=== PATIENT | male | born 1950 | race Caucasian/White ===

== ENCOUNTER 2023-08-25 14:15 | Inpatient (IN) | payer OTHER ==
[~2023-08-25] VITALS: Ht 167.6 cm; Wt 80.7 kg
[~2023-08-25 14:15] MED LIST: ACET-1182 PO; Gentamicin Per Pharmacy MC; [UNRECOGNIZED DRUG - CODE] IV; [UNRECOGNIZED DRUG - CODE] IV
[2023-08-25 14:25] VITALS: BP_SYST 110; PULSE 126; RESP 16; TEMP 101.2; O2SAT 93
[2023-08-25] MEDS ORDERED: ACETAMINOPHEN 650 MG SUPP RC ONE (14:45)
[2023-08-25] MEDS ORDERED: NACL 0.9% 1,000 ML IV ONE (14:45)
[2023-08-25 15:05] LABS: BASOPHILS % (AUTO) 0.2 % (0.0-2.0); EOSINOPHILS % (AUTO) 0.1 % (0.0-4.0); HEMATOCRIT 38.7 % (36-52); HEMOGLOBIN 13.2 g/dL (12.0-18.0); LYMPHOCYTES # (AUTO) 0.3 K/uL (2.0-11.5); MEAN CORPUSCULAR HEMOGLOBIN 29 pg (27-31); MEAN CORPUSCULAR HGB CONC 34 g/dL (33-37); MEAN CORPUSCULAR VOLUME 85.5 fL (80-94); MONOCYTES # (AUTO) 0.6 K/uL (0.8-1.0); MONOCYTES % (AUTO) 5.7 % (1.7-9.3); NEUTROPHILS # (AUTO) 9.5 K/uL (1.8-7.7); PLATELET COUNT (AUTO) 240 K/uL (140-450); RED BLOOD CELL COUNT(AUTO) 4.53 MIL/uL (4.20-6.10); RED CELL DISTRIBUTION WIDTH 17.3 % (11.6-13.7); WHITE BLOOD COUNT (AUTO) 10.4 K/uL (4.8-10.8)
[2023-08-25 15:28] LABS: BILIRUBIN,URINE 1+ (NEGATIVE); BLOOD, URINE 3+ (NEGATIVE); LEUKOCYTE ESTERASE ,URINE 1+ (NEGATIVE); NITRITE, URINE NEGATIVE (NEGATIVE); PH,URINE 6.5 (5.0-9.0); PROTEIN,URINE 2+ (NEGATIVE); UGLUCOSE NEGATIVE (NEGATIVE)
[2023-08-25 15:29] VITALS: O2SAT 96
[2023-08-25 15:35] LABS: ANION GAP 10.1 (8-16); CALCIUM 9.8 mg/dL (8.5-10.1); CARBON DIOXIDE 29.1 mmol/L (21-32); CHLORIDE 101 mmol/L (98-107); GLUCOSE 128 mg/dL (74-106); POTASSIUM 4.2 mmol/L (3.5-5.1); SODIUM SERUM 136 mmol/L (136-145); UREA NITROGEN, BLOOD 28 mg/dL (7-18)
[2023-08-25 15:40] LABS: INR 1.03 (0.8-1.2); PARTIAL THROMBOPLASTIN TIME 24.1 secs (22-35.6); PROTHROMBIN TIME 10.8 secs (10.8-13.4)
[2023-08-25 15:47] LABS: ALANINE AMINOTRANSFERASE 67 U/L (12-78); ALBUMIN 3.6 g/dL (3.4-5.0); ALKALINE PHOSPHATASE 107 U/L (50-136); ASPARTATE AMINOTRANSFERASE 46 U/L (15-37); BILIRUBIN,DIRECT 0.3 mg/dL (0.0-0.3); CREATINE KINASE, TOTAL 72 U/L (39-308); TOTAL BILIRUBIN 1.4 mg/dL (0.0-1.0); TOTAL PROTEIN, SERUM 8.5 g/dL (6.4-8.2)
[2023-08-25 15:52] LABS: LACTIC ACID 1.1 mmol/L (0.4-2.0)
[2023-08-25 16:00] LABS: FLU B ANTIGEN NEGATIVE (NEGATIVE); RSV NEGATIVE (NEGATIVE)
[2023-08-25 16:02] LABS: FLU A ANTIGEN POSITIVE (NEGATIVE)
[2023-08-25 16:16] LABS: APPEARANCE,URINE CLOUDY (CLEAR); COLOR,URINE AMBER (YELLOW)
[2023-08-25 16:17] LABS: BACTERIA,URINE 4+ /HPF (None Seen); RBC,URINE >100 /HPF (0-5); SQUAMOUS EPITHELIAL CELL,UR None Seen /LPF (0-3 (FEW)); WBC,URINE TOO MANY TO COUNT /HPF (0-5)
[2023-08-25] MEDS ORDERED: cefTRIAXone 1,000 MG VIAL ONE (17:13)
[2023-08-25] MEDS ORDERED: ONDANSETRON 4 MG/2 ML VIAL IVP PRN (18:55)
[2023-08-25] MEDS ORDERED: HYDROcodone/APAP 5/325 MG 1 TAB TAB PO PRN (18:55)
[2023-08-25] MEDS ORDERED: ACETAMINOPHEN 325 MG TAB PO PRN (18:55)
[2023-08-25] MEDS ORDERED: MORPHINE SULFATE 4 MG/ML SYR IVP PRN (18:55)
[2023-08-25] MEDS ORDERED: POTASSIUM CHLORIDE 10 MEQ TABER PO PRN (18:55)
[2023-08-25] MEDS ORDERED: LORazepam 1 MG TAB PO PRN (18:55)
[2023-08-25] MEDS ORDERED: MAG SULF 2000 MG/WATER PREMIX 50 ML IV PRN (18:55)
[2023-08-25 19:49] VITALS: O2SAT 97
[2023-08-25 20:45] VITALS: PULSE 105; RESP 18; O2SAT 97
[2023-08-25] MEDS ORDERED: OXYC5TAB4 PO (21:33)
[2023-08-25] MEDS ORDERED: MULT-2171 PO (21:33)
[2023-08-25] MEDS ORDERED: BISA-218 RC (21:33)
[2023-08-25] MEDS ORDERED: CHOL20004 PO (21:33)
[2023-08-25] MEDS ORDERED: DOCU-299 PO (21:33)
[2023-08-25] MEDS ORDERED: ACET325C8 PO (21:33)
[2023-08-25] MEDS ORDERED: ATOR10TA PO (21:33)
[2023-08-25] MEDS ORDERED: FLEPED RC (21:33)
[2023-08-25] MEDS ORDERED: MEMA5TAB PO (21:33)
[2023-08-25] MEDS ORDERED: MAGN400S60 PO (21:33)
[2023-08-25] MEDS: NACL 0.9% 1,000 ML IV SCH (23:16)
[2023-08-25] MEDS ORDERED: ALBUTEROL SULFATE/IPRATROPIU 3 ML SOL IH PRN (23:40)
[2023-08-25] MEDS ORDERED: ALBUTEROL SULFATE/IPRATROPIU 3 ML SOL IH ONE (23:50)
[2023-08-25] MEDS ORDERED: AZITHROMYCIN 500 MG INJ VIAL IV ONE (23:59)
[2023-08-26] VITALS (12 sets, daily range): BP systolic 110–138; BP diastolic 63–76; PULSE 89–132; RESP 16–24; TEMP 97.4–98.8; O2SAT 96–100
[2023-08-26] MEDS: AZITHROMYCIN 500 MG in DEXTROSE 5% 250 ML IV SCH (00:17)
[2023-08-26 06:14] LABS: BASOPHILS % (AUTO) 0.2 % (0.0-2.0); EOSINOPHILS % (AUTO) 0.5 % (0.0-4.0); HEMATOCRIT 36.5 % (36-52); HEMOGLOBIN 12.3 g/dL (12.0-18.0); LYMPHOCYTES # (AUTO) 0.8 K/uL (2.0-11.5); LYMPHOCYTES % (AUTO) 7.6 % (20.5-51.1); MEAN CORPUSCULAR HEMOGLOBIN 29 pg (27-31); MEAN CORPUSCULAR HGB CONC 34 g/dL (33-37); MEAN CORPUSCULAR VOLUME 86.3 fL (80-94); MONOCYTES # (AUTO) 0.7 K/uL (0.8-1.0); MONOCYTES % (AUTO) 6.7 % (1.7-9.3); NEUTROPHILS # (AUTO) 8.5 K/uL (1.8-7.7); PLATELET COUNT (AUTO) 200 K/uL (140-450); RED BLOOD CELL COUNT(AUTO) 4.23 MIL/uL (4.20-6.10); WHITE BLOOD COUNT (AUTO) 10.1 K/uL (4.8-10.8)
[2023-08-26 06:41] LABS: ANION GAP 13.9 (8-16); CALCIUM 8.6 mg/dL (8.5-10.1); CARBON DIOXIDE 25.1 mmol/L (21-32); CHLORIDE 102 mmol/L (98-107); CREATININE 0.8 mg/dL (0.6-1.3); GLUCOSE 104 mg/dL (74-106); SODIUM SERUM 137 mmol/L (136-145); UREA NITROGEN, BLOOD 31 mg/dL (7-18)
[2023-08-26] MEDS: NACL 0.9% 1,000 ML IV SCH ×2 (06:54→22:36)
[2023-08-26] MEDS: ALBUTEROL SULFATE/IPRATROPIU 3 ML SOL IH SCH ×3 (07:17→19:45)
[2023-08-26] MEDS: LACTULOSE 20 GM/30 ML UDC PO SCH ×2 (12:44→21:00)
[2023-08-27] VITALS (10 sets, daily range): BP systolic 111–141; BP diastolic 60–81; PULSE 85–103; RESP 16–22; TEMP 97.7–98.5; O2SAT 94–98
[2023-08-27] MEDS: ALBUTEROL SULFATE/IPRATROPIU 3 ML SOL IH SCH ×4 (01:25→20:18)
[2023-08-27] MEDS: AZITHROMYCIN 500 MG in DEXTROSE 5% 250 ML IV SCH (02:21)
[2023-08-27 05:45] LABS: BASOPHILS % (AUTO) 0.3 % (0.0-2.0); EOSINOPHILS # (AUTO) 0.1 K/uL (0-0.4); EOSINOPHILS % (AUTO) 0.9 % (0.0-4.0); HEMATOCRIT 37.3 % (36-52); HEMOGLOBIN 12.8 g/dL (12.0-18.0); LYMPHOCYTES # (AUTO) 0.6 K/uL (2.0-11.5); LYMPHOCYTES % (AUTO) 9.6 % (20.5-51.1); MEAN CORPUSCULAR HEMOGLOBIN 29 pg (27-31); MEAN CORPUSCULAR HGB CONC 34 g/dL (33-37); MEAN CORPUSCULAR VOLUME 85.7 fL (80-94); MONOCYTES # (AUTO) 0.6 K/uL (0.8-1.0); MONOCYTES % (AUTO) 9.7 % (1.7-9.3); NEUTROPHILS # (AUTO) 4.7 K/uL (1.8-7.7); NEUTROPHILS % (AUTO) 79.5 % (42.2-75.2); PLATELET COUNT (AUTO) 197 K/uL (140-450); RED BLOOD CELL COUNT(AUTO) 4.35 MIL/uL (4.20-6.10); RED CELL DISTRIBUTION WIDTH 17.1 % (11.6-13.7); WHITE BLOOD COUNT (AUTO) 5.9 K/uL (4.8-10.8)
[2023-08-27 06:05] LABS: ANION GAP 11.9 (8-16); CALCIUM 8.9 mg/dL (8.5-10.1); CARBON DIOXIDE 30.9 mmol/L (21-32); CHLORIDE 102 mmol/L (98-107); CREATININE 0.9 mg/dL (0.6-1.3); GLUCOSE 121 mg/dL (74-106); POTASSIUM 3.8 mmol/L (3.5-5.1); SODIUM SERUM 141 mmol/L (136-145); UREA NITROGEN, BLOOD 24 mg/dL (7-18)
[2023-08-27] MEDS: LACTULOSE 20 GM/30 ML UDC PO SCH ×2 (09:14→21:00)
[2023-08-27] MEDS: NACL 0.9% 1,000 ML IV SCH ×2 (09:19→20:55)
[2023-08-28] VITALS (9 sets, daily range): BP systolic 112–141; BP diastolic 68–97; PULSE 85–100; RESP 18–22; TEMP 97–98.1; O2SAT 93–98
[2023-08-28] MEDS: AZITHROMYCIN 500 MG in DEXTROSE 5% 250 ML IV SCH (00:57)
[2023-08-28] MEDS: ALBUTEROL SULFATE/IPRATROPIU 3 ML SOL IH SCH ×3 (01:45→12:48)
[2023-08-28 05:43] LABS: BASOPHILS % (AUTO) 0.3 % (0.0-2.0); EOSINOPHILS # (AUTO) 0.1 K/uL (0-0.4); HEMATOCRIT 36.2 % (36-52); HEMOGLOBIN 12.2 g/dL (12.0-18.0); LYMPHOCYTES # (AUTO) 0.5 K/uL (2.0-11.5); LYMPHOCYTES % (AUTO) 8.8 % (20.5-51.1); MEAN CORPUSCULAR HEMOGLOBIN 29 pg (27-31); MEAN CORPUSCULAR HGB CONC 34 g/dL (33-37); MEAN CORPUSCULAR VOLUME 85.3 fL (80-94); MONOCYTES # (AUTO) 0.5 K/uL (0.8-1.0); MONOCYTES % (AUTO) 8.8 % (1.7-9.3); NEUTROPHILS % (AUTO) 81.1 % (42.2-75.2); PLATELET COUNT (AUTO) 222 K/uL (140-450); RED BLOOD CELL COUNT(AUTO) 4.24 MIL/uL (4.20-6.10); WHITE BLOOD COUNT (AUTO) 6.1 K/uL (4.8-10.8)
[2023-08-28 05:58] LABS: ANION GAP 12.5 (8-16); CALCIUM 8.8 mg/dL (8.5-10.1); CARBON DIOXIDE 29.9 mmol/L (21-32); CHLORIDE 101 mmol/L (98-107); CREATININE 0.9 mg/dL (0.6-1.3); GLUCOSE 111 mg/dL (74-106); POTASSIUM 3.4 mmol/L (3.5-5.1); SODIUM SERUM 140 mmol/L (136-145); UREA NITROGEN, BLOOD 25 mg/dL (7-18)
[2023-08-28] MEDS: NACL 0.9% 1,000 ML IV SCH (09:25)
[2023-08-28] MEDS: LACTULOSE 20 GM/30 ML UDC PO SCH ×2 (09:30→21:00)
[2023-08-28] MEDS ORDERED: ALBU3SOL83 IH (11:36)
[2023-08-28] MEDS ORDERED: ROC1PM IV (11:40)
[2023-08-28] MEDS ORDERED: ERTA1VIA2 IV (14:04)
[2023-08-28] MEDS ORDERED: POTASSIUM CHLORIDE 20% 40 MEQ/15 ML UDC GT PRN (18:20)
[2023-08-29] VITALS (8 sets, daily range): BP systolic 114–143; BP diastolic 57–77; PULSE 92–104; RESP 18–24; TEMP 97.1–99.3; O2SAT 90–96
[2023-08-29] MEDS: AZITHROMYCIN 500 MG in DEXTROSE 5% 250 ML IV SCH (03:58)
[2023-08-29] MEDS: NACL 0.9% 1,000 ML IV SCH ×3 (04:01→22:18)
[2023-08-29 05:35] LABS: BASOPHILS % (AUTO) 0.1 % (0.0-2.0); EOSINOPHILS # (AUTO) 0.1 K/uL (0-0.4); EOSINOPHILS % (AUTO) 2.9 % (0.0-4.0); HEMATOCRIT 34.5 % (36-52); HEMOGLOBIN 11.7 g/dL (12.0-18.0); LYMPHOCYTES # (AUTO) 0.9 K/uL (2.0-11.5); LYMPHOCYTES % (AUTO) 17.8 % (20.5-51.1); MEAN CORPUSCULAR HEMOGLOBIN 29 pg (27-31); MEAN CORPUSCULAR HGB CONC 34 g/dL (33-37); MEAN CORPUSCULAR VOLUME 84.9 fL (80-94); MONOCYTES # (AUTO) 0.5 K/uL (0.8-1.0); MONOCYTES % (AUTO) 9.3 % (1.7-9.3); NEUTROPHILS # (AUTO) 3.5 K/uL (1.8-7.7); NEUTROPHILS % (AUTO) 69.9 % (42.2-75.2); PLATELET COUNT (AUTO) 219 K/uL (140-450); RED BLOOD CELL COUNT(AUTO) 4.07 MIL/uL (4.20-6.10); RED CELL DISTRIBUTION WIDTH 16.9 % (11.6-13.7)
[2023-08-29 05:54] LABS: ANION GAP 11.3 (8-16); CALCIUM 8.7 mg/dL (8.5-10.1); CARBON DIOXIDE 29.8 mmol/L (21-32); CHLORIDE 102 mmol/L (98-107); CREATININE 0.8 mg/dL (0.6-1.3); GLUCOSE 141 mg/dL (74-106); POTASSIUM 3.1 mmol/L (3.5-5.1); SODIUM SERUM 140 mmol/L (136-145); UREA NITROGEN, BLOOD 27 mg/dL (7-18)
[2023-08-29] MEDS: ALBUTEROL SULFATE/IPRATROPIU 3 ML SOL IH SCH ×3 (07:48→20:24)
[2023-08-29] MEDS: LACTULOSE 20 GM/30 ML UDC PO SCH ×2 (09:26→20:32)
[2023-08-29] MEDS ORDERED: ERTA1VIA2 IJ (11:10)
[2023-08-29] MEDS: ERTAPENEM SODIUM 1,000 MG in NACL 0.9% 50 ML IV SCH (12:23)
[2023-08-30] VITALS (7 sets, daily range): BP systolic 137–147; BP diastolic 75–92; PULSE 94–106; RESP 18–24; TEMP 98–98.3; O2SAT 95–98
[2023-08-30] MEDS: ALBUTEROL SULFATE/IPRATROPIU 3 ML SOL IH SCH ×4 (01:02→19:34)
[2023-08-30 04:59] LABS: BASOPHILS % (AUTO) 0.3 % (0.0-2.0); EOSINOPHILS # (AUTO) 0.1 K/uL (0-0.4); EOSINOPHILS % (AUTO) 1.1 % (0.0-4.0); HEMATOCRIT 36.5 % (36-52); HEMOGLOBIN 12.3 g/dL (12.0-18.0); LYMPHOCYTES # (AUTO) 0.9 K/uL (2.0-11.5); LYMPHOCYTES % (AUTO) 12.1 % (20.5-51.1); MEAN CORPUSCULAR HEMOGLOBIN 29 pg (27-31); MEAN CORPUSCULAR HGB CONC 34 g/dL (33-37); MEAN CORPUSCULAR VOLUME 85.3 fL (80-94); MONOCYTES # (AUTO) 0.7 K/uL (0.8-1.0); MONOCYTES % (AUTO) 9.2 % (1.7-9.3); NEUTROPHILS # (AUTO) 5.5 K/uL (1.8-7.7); NEUTROPHILS % (AUTO) 77.3 % (42.2-75.2); PLATELET COUNT (AUTO) 199 K/uL (140-450); RED BLOOD CELL COUNT(AUTO) 4.29 MIL/uL (4.20-6.10); RED CELL DISTRIBUTION WIDTH 16.9 % (11.6-13.7); WHITE BLOOD COUNT (AUTO) 7.1 K/uL (4.8-10.8)
[2023-08-30 05:13] LABS: ANION GAP 12.3 (8-16); CALCIUM 8.6 mg/dL (8.5-10.1); CARBON DIOXIDE 28.5 mmol/L (21-32); CHLORIDE 103 mmol/L (98-107); CREATININE 0.7 mg/dL (0.6-1.3); GLUCOSE 87 mg/dL (74-106); POTASSIUM 3.8 mmol/L (3.5-5.1); SODIUM SERUM 140 mmol/L (136-145); UREA NITROGEN, BLOOD 23 mg/dL (7-18)
[2023-08-30] MEDS: LACTULOSE 20 GM/30 ML UDC PO SCH ×2 (09:22→20:16)
[2023-08-30] MEDS: ERTAPENEM SODIUM 1,000 MG in NACL 0.9% 50 ML IV SCH (12:19)
[2023-08-30] MEDS: NACL 0.9% 1,000 ML IV SCH ×2 (12:22→23:34)
[2023-08-31 01:21] VITALS: PULSE 110; RESP 20; O2SAT 98
[2023-08-31] MEDS: ALBUTEROL SULFATE/IPRATROPIU 3 ML SOL IH SCH ×3 (01:21→13:23)
[2023-08-31 04:00] VITALS: BP 135/68; PULSE 92; RESP 19; TEMP 97.8; O2SAT 98
[2023-08-31 07:27] VITALS: PULSE 90; RESP 20; O2SAT 97
[2023-08-31 08:00] VITALS: BP 135/72; PULSE 96; RESP 20; TEMP 97.8; TEMP 98; O2SAT 94
[2023-08-31] MEDS: LACTULOSE 20 GM/30 ML UDC PO SCH (10:29)
[2023-08-31] MEDS: NACL 0.9% 1,000 ML IV SCH (12:25)
[2023-08-31 13:23] VITALS: PULSE 91; RESP 20; O2SAT 93
[2023-08-31] MEDS: ERTAPENEM SODIUM 1,000 MG in NACL 0.9% 50 ML IV SCH (13:26)
== END 2023-08-31 13:55 | DRG 720 ==
LOC: MED 14:15 → MMU 18:51 → MTU 20:19
PROVIDERS: ADMIT Student in an Organized Health Care Education/Training Program; ATTEND Student in an Organized Health Care Education/Training Program
PROC: 5A1935Z Respiratory Ventilation, Less than 24 Consecutive Hours (ICD-10-PCS; principal; 2023-08-26)
DX: A41.9 Sepsis, unspecified organism (principal); J96.01 Acute respiratory failure with hypoxia; G93.41 Metabolic encephalopathy; J10.00 Influenza due to other identified influenza virus with unspecified type of pneumonia; K76.82 Hepatic encephalopathy; E86.1 Hypovolemia; E78.5 Hyperlipidemia, unspecified; I10 Essential (primary) hypertension; D72.829 Elevated white blood cell count, unspecified; K59.00 Constipation, unspecified; N39.0 Urinary tract infection, site not specified; B96.1 Klebsiella pneumoniae [K. pneumoniae] as the cause of diseases classified elsewhere; Z20.822 Contact with and (suspected) exposure to COVID-19; Z86.73 Personal history of transient ischemic attack (TIA), and cerebral infarction without residual deficits
CPT/HCPCS: 36415; 70450; 71045; 80048; 80076; 81001; 82550; 83605; 83880; 84484; 85025; 85610; 85730; 87040; 87081; 87086; 87420; 93005; 94640; 96374; 99291; J0456; J0696; J1335; J1644; J2405; J7060

== ENCOUNTER 2023-08-31 18:12 | Inpatient (IN) | payer OTHER ==
[~2023-08-31] VITALS: Ht 177.8 cm; Wt 93.0 kg
[~2023-08-31 18:12] MED LIST changes: +ACET325C8 PO; +ALBU3SOL83 IH; +ATOR10TA PO; +BISA-218 RC; +CHOL20004 PO; +DOCU-299 PO; +ERTA1VIA2 IJ; +ERTA1VIA2 IV; +FLEPED RC; -Gentamicin Per Pharmacy MC; +MAGN400S60 PO; +MEMA5TAB PO; +MULT-2171 PO; -[UNRECOGNIZED DRUG - CODE] IV; -[UNRECOGNIZED DRUG - CODE] IV
[2023-08-31 18:24] VITALS: BP 115/71; PULSE 127; RESP 22; TEMP 98.9; O2SAT 93
[2023-08-31] MEDS ORDERED: CEFEPIME 1,000 MG in DEXTROSE 5% 50 ML IV ONE (19:05)
[2023-08-31] MEDS ORDERED: NACL 0.9% 2,000 ML IV ONE (19:05)
[2023-08-31] MEDS ORDERED: CEFEPIME 1,000 MG VIAL ONE ×2 (19:28→22:48)
[2023-08-31 20:07] LABS: ANION GAP 16.7 (8-16); CALCIUM 8.6 mg/dL (8.5-10.1); CHLORIDE 105 mmol/L (98-107); CREATININE 0.7 mg/dL (0.6-1.3); GLUCOSE 115 mg/dL (74-106); POTASSIUM 3.7 mmol/L (3.5-5.1); SODIUM SERUM 141 mmol/L (136-145); UREA NITROGEN, BLOOD 36 mg/dL (7-18)
[2023-08-31 20:12] LABS: BASOPHILS % (AUTO) 0.2 % (0.0-2.0); EOSINOPHILS % (AUTO) 0.1 % (0.0-4.0); HEMATOCRIT 35.3 % (36-52); HEMOGLOBIN 11.7 g/dL (12.0-18.0); LYMPHOCYTES # (AUTO) 0.5 K/uL (2.0-11.5); LYMPHOCYTES % (AUTO) 4.1 % (20.5-51.1); MEAN CORPUSCULAR HEMOGLOBIN 28 pg (27-31); MEAN CORPUSCULAR HGB CONC 33 g/dL (33-37); MEAN CORPUSCULAR VOLUME 85.7 fL (80-94); MONOCYTES # (AUTO) 0.5 K/uL (0.8-1.0); MONOCYTES % (AUTO) 4.6 % (1.7-9.3); NEUTROPHILS # (AUTO) 10.4 K/uL (1.8-7.7); PLATELET COUNT (AUTO) 238 K/uL (140-450); RED BLOOD CELL COUNT(AUTO) 4.12 MIL/uL (4.20-6.10); RED CELL DISTRIBUTION WIDTH 16.9 % (11.6-13.7); WHITE BLOOD COUNT (AUTO) 11.4 K/uL (4.8-10.8)
[2023-08-31 20:17] LABS: LACTIC ACID 1.1 mmol/L (0.4-2.0)
[2023-08-31] MEDS ORDERED: PIPERACILLIN/TAZOBACTAM 3.375 GM in DEXTROSE 5% 50 ML IV ONE (23:30)
[2023-09-01] MEDS ORDERED: PIPERACILLIN/TAZOBACTAM 3.375 GM VIAL IV ONE ×3 (00:16→21:37)
[2023-09-01] MEDS ORDERED: diphenhydrAMINE 50 MG/ML VIAL IVP ONE (01:10)
[2023-09-01] MEDS ORDERED: ACETAMINOPHEN 325 MG TAB PO PRN (05:45)
[2023-09-01] MEDS ORDERED: ONDANSETRON 4 MG/2 ML VIAL IVP PRN (05:45)
[2023-09-01] MEDS ORDERED: MORPHINE SULFATE 2 MG/ML SYR IVP PRN (05:45)
[2023-09-01] MEDS: NACL 0.9% 1,000 ML IV SCH ×3 (07:13→21:33)
[2023-09-01] MEDS: PIPERACILLIN/TAZOBACTAM 3.375 GM in DEXTROSE 5% 50 ML IV SCH ×2 (13:24→22:01)
[2023-09-01] MEDS ORDERED: LORazepam 2 MG/ML VIAL ONE (14:23)
[2023-09-01 14:52] LABS: BASOPHILS % (AUTO) 0.1 % (0.0-2.0); EOSINOPHILS % (AUTO) 0.1 % (0.0-4.0); HEMATOCRIT 33.8 % (36-52); HEMOGLOBIN 11.3 g/dL (12.0-18.0); LYMPHOCYTES # (AUTO) 0.6 K/uL (2.0-11.5); LYMPHOCYTES % (AUTO) 4.3 % (20.5-51.1); MEAN CORPUSCULAR HEMOGLOBIN 29 pg (27-31); MEAN CORPUSCULAR HGB CONC 33 g/dL (33-37); MONOCYTES # (AUTO) 0.8 K/uL (0.8-1.0); MONOCYTES % (AUTO) 6.2 % (1.7-9.3); NEUTROPHILS # (AUTO) 11.5 K/uL (1.8-7.7); NEUTROPHILS % (AUTO) 89.3 % (42.2-75.2); PLATELET COUNT (AUTO) 256 K/uL (140-450); RED BLOOD CELL COUNT(AUTO) 3.93 MIL/uL (4.20-6.10); RED CELL DISTRIBUTION WIDTH 17.1 % (11.6-13.7); WHITE BLOOD COUNT (AUTO) 12.9 K/uL (4.8-10.8)
[2023-09-01] MEDS ORDERED: LORazepam 2 MG/ML VIAL IVP ONE (15:00)
[2023-09-01] MEDS ORDERED: LORazepam 2 MG/ML VIAL IVP SCH (15:00)
[2023-09-01] MEDS ORDERED: MAGNESIUM HYDROXIDE 2400 MG/30 ML UDC PO PRN (15:40)
[2023-09-01] MEDS ORDERED: bisacodyL 10 MG SUPP RC PRN (15:40)
[2023-09-01] MEDS: PANTOPRAZOLE 80 MG in NACL 0.9% 100 ML IVP SCH (15:42)
[2023-09-01 17:00] LABS: BLOOD GAS BASE EXCESS -2.9 mmol/L (-2.0-2.0); BLOOD GAS HCO3 21.4 mmol/L (22-26); BLOOD GAS PCO2 35.8 mmHg (35-45); BLOOD GAS PH 7.395 (7.35-7.45); BLOOD GAS PO2 71.5 mmHg (75-100)
[2023-09-01 17:01] LABS: BLOOD GAS O2 SAT% 93.9 % (92.0-98.5)
[2023-09-01 19:27] VITALS: PULSE 119; RESP 32; O2SAT 100
[2023-09-01] MEDS: IPRATROPIUM 0.02% 0.5 MG/2.5 ML NEBU INH SCH (19:27)
[2023-09-01] MEDS: LEVALBUTEROL 1.25 MG/0.5 ML NEBU INH SCH (19:27)
[2023-09-01 20:24] VITALS: PULSE 115; RESP 20; O2SAT 98
[2023-09-01] MEDS ORDERED: DOCUSATE SODIUM 100 MG GELCAP PO SCH (21:00)
[2023-09-01 22:00] VITALS: BP 96/60; PULSE 116; RESP 18; TEMP 98.1; O2SAT 100
[2023-09-01 23:00] VITALS: BP 121/66; PULSE 115; RESP 20; O2SAT 98
[2023-09-02] VITALS (27 sets, daily range): BP systolic 87–129; BP diastolic 51–75; PULSE 86–135; RESP 14–40; TEMP 97.1–98; O2SAT 92–100
[2023-09-02] MEDS: IPRATROPIUM 0.02% 0.5 MG/2.5 ML NEBU INH SCH ×4 (01:00→20:15)
[2023-09-02] MEDS: LEVALBUTEROL 1.25 MG/0.5 ML NEBU INH SCH ×4 (01:00→20:15)
[2023-09-02] MEDS ORDERED: PANTOPRAZOLE 40 MG INJ VIAL ONE (01:31)
[2023-09-02] MEDS: PANTOPRAZOLE 80 MG in NACL 0.9% 100 ML IVP SCH ×3 (01:42→20:59)
[2023-09-02] MEDS ORDERED: PIPERACILLIN/TAZOBACTAM 3.375 GM VIAL IV ONE (02:39)
[2023-09-02] MEDS: PIPERACILLIN/TAZOBACTAM 3.375 GM in DEXTROSE 5% 50 ML IV SCH ×3 (04:10→20:49)
[2023-09-02] MEDS: CHOLECALCIFEROL 1,000 IU TAB PO SCH (08:48)
[2023-09-02] MEDS: DOCUSATE 100 MG/10 ML UDC GT SCH ×2 (08:48→21:27)
[2023-09-02] MEDS: MEMANTINE 10 MG TAB PO SCH (08:49)
[2023-09-02] MEDS: MULTIVITAMIN 1 TAB PO SCH (08:49)
[2023-09-02] MEDS ORDERED: NON-FORMULARY ITEM (Cholecalciferol (Vitamin D3) (Vitamin D3) 1 TAB) PO SCH (09:00)
[2023-09-02] MEDS ORDERED: NON-FORMULARY ITEM (Multivitamin (Multiple Vitamins) 1 TAB) PO SCH (09:00)
[2023-09-02 09:38] LABS: BASOPHILS % (AUTO) 0.2 % (0.0-2.0); EOSINOPHILS # (AUTO) 0.1 K/uL (0-0.4); EOSINOPHILS % (AUTO) 0.9 % (0.0-4.0); HEMATOCRIT 28.1 % (36-52); HEMOGLOBIN 9.4 g/dL (12.0-18.0); LYMPHOCYTES # (AUTO) 1.1 K/uL (2.0-11.5); LYMPHOCYTES % (AUTO) 7.1 % (20.5-51.1); MEAN CORPUSCULAR HEMOGLOBIN 29 pg (27-31); MEAN CORPUSCULAR HGB CONC 33 g/dL (33-37); MEAN CORPUSCULAR VOLUME 86.5 fL (80-94); MONOCYTES # (AUTO) 0.9 K/uL (0.8-1.0); MONOCYTES % (AUTO) 5.8 % (1.7-9.3); NEUTROPHILS # (AUTO) 12.7 K/uL (1.8-7.7); PLATELET COUNT (AUTO) 222 K/uL (140-450); RED BLOOD CELL COUNT(AUTO) 3.25 MIL/uL (4.20-6.10); RED CELL DISTRIBUTION WIDTH 17.1 % (11.6-13.7); WHITE BLOOD COUNT (AUTO) 14.8 K/uL (4.8-10.8)
[2023-09-02] MEDS ORDERED: NACL 0.9% 1,000 ML IV ONE (09:45)
[2023-09-02] MEDS ORDERED: NOREPINEPHRINE 4 MG in DEXTROSE 5% 250 ML IV PRN (09:45)
[2023-09-02 09:59] LABS: ALANINE AMINOTRANSFERASE 75 U/L (12-78); ALBUMIN 2.1 g/dL (3.4-5.0); ALKALINE PHOSPHATASE 66 U/L (50-136); ANION GAP 7.9 (8-16); ASPARTATE AMINOTRANSFERASE 39 U/L (15-37); CALCIUM 8.3 mg/dL (8.5-10.1); CARBON DIOXIDE 28.3 mmol/L (21-32); CHLORIDE 112 mmol/L (98-107); CREATININE 0.8 mg/dL (0.6-1.3); GLUCOSE 99 mg/dL (74-106); MAGNESIUM 2.3 mg/dL (1.8-2.4); POTASSIUM 3.2 mmol/L (3.5-5.1); SODIUM SERUM 145 mmol/L (136-145); TOTAL BILIRUBIN 1.2 mg/dL (0.0-1.0); TOTAL PROTEIN, SERUM 6.3 g/dL (6.4-8.2); UREA NITROGEN, BLOOD 34 mg/dL (7-18)
[2023-09-02] MEDS: NACL 0.9% 1,000 ML IV SCH ×2 (10:23→20:50)
[2023-09-02] MEDS: ACETAMINOPHEN 100 ML IV SCH ×3 (13:25→23:59)
[2023-09-02] MEDS ORDERED: DILTIAZEM 25 MG/5 ML VIAL IVP SCH (13:30)
[2023-09-02] MEDS ORDERED: AMIODARONE 450 MG in DEXTROSE 5% 250 ML IV SCH (13:45)
[2023-09-02] MEDS ORDERED: KCL 20 MEQ IN 100 mL PREMIX 200 ML IV ONE (18:05)
[2023-09-02 21:33] LABS: FLU A ANTIGEN negative (NEGATIVE); FLU B ANTIGEN negative (NEGATIVE)
[2023-09-03] VITALS (29 sets, daily range): BP systolic 97–130; BP diastolic 37–83; PULSE 81–107; RESP 13–23; TEMP 97.2–97.9; O2SAT 88–100
[2023-09-03] MEDS: LEVALBUTEROL 1.25 MG/0.5 ML NEBU INH SCH ×7 (00:33→23:25)
[2023-09-03] MEDS: IPRATROPIUM 0.02% 0.5 MG/2.5 ML NEBU INH SCH ×7 (00:33→23:25)
[2023-09-03] MEDS ORDERED: KCL 20 MEQ IN 100 mL PREMIX 100 ML IV ONE (01:49)
[2023-09-03] MEDS: PIPERACILLIN/TAZOBACTAM 3.375 GM in DEXTROSE 5% 50 ML IV SCH ×3 (04:52→20:40)
[2023-09-03] MEDS: ACETAMINOPHEN 100 ML IV SCH ×3 (05:52→18:00)
[2023-09-03] MEDS: NACL 0.9% 1,000 ML IV SCH ×2 (05:53→15:45)
[2023-09-03] MEDS: PANTOPRAZOLE 80 MG in NACL 0.9% 100 ML IVP SCH ×2 (06:01→17:30)
[2023-09-03 08:22] LABS: BASOPHILS % (AUTO) 0.2 % (0.0-2.0); EOSINOPHILS # (AUTO) 0.1 K/uL (0-0.4); EOSINOPHILS % (AUTO) 1.1 % (0.0-4.0); HEMATOCRIT 24.2 % (36-52); HEMOGLOBIN 7.9 g/dL (12.0-18.0); LYMPHOCYTES # (AUTO) 0.9 K/uL (2.0-11.5); LYMPHOCYTES % (AUTO) 6.9 % (20.5-51.1); MEAN CORPUSCULAR HEMOGLOBIN 29 pg (27-31); MEAN CORPUSCULAR HGB CONC 33 g/dL (33-37); MEAN CORPUSCULAR VOLUME 87.3 fL (80-94); MONOCYTES # (AUTO) 0.8 K/uL (0.8-1.0); MONOCYTES % (AUTO) 6.2 % (1.7-9.3); NEUTROPHILS # (AUTO) 11.3 K/uL (1.8-7.7); NEUTROPHILS % (AUTO) 85.6 % (42.2-75.2); PLATELET COUNT (AUTO) 172 K/uL (140-450); RED BLOOD CELL COUNT(AUTO) 2.77 MIL/uL (4.20-6.10); WHITE BLOOD COUNT (AUTO) 13.2 K/uL (4.8-10.8)
[2023-09-03 08:31] LABS: ANION GAP 12.7 (8-16); CALCIUM 7.9 mg/dL (8.5-10.1); CARBON DIOXIDE 24.3 mmol/L (21-32); CHLORIDE 111 mmol/L (98-107); CREATININE 0.7 mg/dL (0.6-1.3); GLUCOSE 76 mg/dL (74-106); SODIUM SERUM 145 mmol/L (136-145); UREA NITROGEN, BLOOD 21 mg/dL (7-18)
[2023-09-03] MEDS: DOCUSATE 100 MG/10 ML UDC GT SCH ×2 (08:32→20:40)
[2023-09-03] MEDS: MEMANTINE 10 MG TAB PO SCH (08:33)
[2023-09-03] MEDS: MULTIVITAMIN 1 TAB PO SCH (08:33)
[2023-09-03] MEDS: CHOLECALCIFEROL 1,000 IU TAB PO SCH (08:33)
[2023-09-03] MEDS ORDERED: KCL 20 MEQ IN 100 mL PREMIX 200 ML IV ONE (13:00)
[2023-09-03] MEDS: DEXT 5% / NACL 0.45% 1,000 ML IV SCH (18:15)
[2023-09-04] VITALS (14 sets, daily range): BP systolic 95–132; BP diastolic 53–73; PULSE 89–111; RESP 18–42; TEMP 97.2–98.7; O2SAT 90–99
[2023-09-04] MEDS: ACETAMINOPHEN 100 ML IV SCH ×4 (01:00→18:00)
[2023-09-04] MEDS: IPRATROPIUM 0.02% 0.5 MG/2.5 ML NEBU INH SCH ×6 (03:28→23:18)
[2023-09-04] MEDS: LEVALBUTEROL 1.25 MG/0.5 ML NEBU INH SCH ×6 (03:28→23:18)
[2023-09-04] MEDS: PIPERACILLIN/TAZOBACTAM 3.375 GM in DEXTROSE 5% 50 ML IV SCH (05:55)
[2023-09-04] MEDS: DOCUSATE 100 MG/10 ML UDC GT SCH ×2 (09:00→20:16)
[2023-09-04 11:04] LABS: BASOPHILS % (AUTO) 0.2 % (0.0-2.0); EOSINOPHILS # (AUTO) 0.1 K/uL (0-0.4); EOSINOPHILS % (AUTO) 1.4 % (0.0-4.0); HEMATOCRIT 25.6 % (36-52); HEMOGLOBIN 8.7 g/dL (12.0-18.0); LYMPHOCYTES # (AUTO) 0.6 K/uL (2.0-11.5); LYMPHOCYTES % (AUTO) 5.8 % (20.5-51.1); MEAN CORPUSCULAR HEMOGLOBIN 29 pg (27-31); MEAN CORPUSCULAR HGB CONC 34 g/dL (33-37); MEAN CORPUSCULAR VOLUME 85.4 fL (80-94); MONOCYTES # (AUTO) 0.9 K/uL (0.8-1.0); MONOCYTES % (AUTO) 8.1 % (1.7-9.3); NEUTROPHILS # (AUTO) 8.9 K/uL (1.8-7.7); NEUTROPHILS % (AUTO) 84.5 % (42.2-75.2); PLATELET COUNT (AUTO) 221 K/uL (140-450); RED CELL DISTRIBUTION WIDTH 17.5 % (11.6-13.7); WHITE BLOOD COUNT (AUTO) 10.6 K/uL (4.8-10.8)
[2023-09-04] MEDS: CHOLECALCIFEROL 1,000 IU TAB PO SCH (11:08)
[2023-09-04] MEDS: MULTIVITAMIN 1 TAB PO SCH (11:08)
[2023-09-04] MEDS: MEMANTINE 10 MG TAB PO SCH (11:08)
[2023-09-04] MEDS: PANTOPRAZOLE 40 MG INJ VIAL IVP SCH (11:09)
[2023-09-04 11:41] LABS: ANION GAP 10.8 (8-16); CALCIUM 7.4 mg/dL (8.5-10.1); CARBON DIOXIDE 28.7 mmol/L (21-32); CHLORIDE 107 mmol/L (98-107); CREATININE 0.7 mg/dL (0.6-1.3); GLUCOSE 102 mg/dL (74-106); SODIUM SERUM 144 mmol/L (136-145); UREA NITROGEN, BLOOD 10 mg/dL (7-18)
[2023-09-04] MEDS: DEXT 5% / NACL 0.45% 1,000 ML IV SCH (11:51)
[2023-09-04] MEDS ORDERED: MIRABULK PO (11:55)
[2023-09-04 11:58] LABS: POTASSIUM 2.5 mmol/L (3.5-5.1)
[2023-09-04] MEDS ORDERED: KCL 20 MEQ IN 100 mL PREMIX 200 ML IV SCH (13:00)
[2023-09-04] MEDS: POLYETHYLENE GLYCOL 17 GM/PKT PO SCH (20:17)
[2023-09-05] VITALS (12 sets, daily range): BP systolic 94–118; BP diastolic 50–62; PULSE 94–116; RESP 19–26; TEMP 97.2–98.6; O2SAT 92–98
[2023-09-05] MEDS: ACETAMINOPHEN 100 ML IV SCH ×3 (00:42→12:00)
[2023-09-05] MEDS: LEVALBUTEROL 1.25 MG/0.5 ML NEBU INH SCH ×4 (03:40→14:53)
[2023-09-05] MEDS: IPRATROPIUM 0.02% 0.5 MG/2.5 ML NEBU INH SCH ×4 (03:40→14:52)
[2023-09-05] MEDS: CHOLECALCIFEROL 1,000 IU TAB PO SCH (08:41)
[2023-09-05] MEDS: PANTOPRAZOLE 40 MG INJ VIAL IVP SCH (08:41)
[2023-09-05] MEDS: MEMANTINE 10 MG TAB PO SCH (08:41)
[2023-09-05] MEDS: MULTIVITAMIN 1 TAB PO SCH (08:41)
[2023-09-05] MEDS: POLYETHYLENE GLYCOL 17 GM/PKT PO SCH (08:42)
[2023-09-05] MEDS: DOCUSATE 100 MG/10 ML UDC GT SCH (08:42)
[2023-09-05 09:22] LABS: BASOPHILS % (AUTO) 0.1 % (0.0-2.0); EOSINOPHILS # (AUTO) 0.2 K/uL (0-0.4); EOSINOPHILS % (AUTO) 2.4 % (0.0-4.0); HEMATOCRIT 26.2 % (36-52); HEMOGLOBIN 8.9 g/dL (12.0-18.0); LYMPHOCYTES # (AUTO) 0.9 K/uL (2.0-11.5); LYMPHOCYTES % (AUTO) 8.9 % (20.5-51.1); MEAN CORPUSCULAR HEMOGLOBIN 29 pg (27-31); MEAN CORPUSCULAR HGB CONC 34 g/dL (33-37); MEAN CORPUSCULAR VOLUME 85.1 fL (80-94); MONOCYTES # (AUTO) 0.8 K/uL (0.8-1.0); MONOCYTES % (AUTO) 7.9 % (1.7-9.3); NEUTROPHILS # (AUTO) 8.4 K/uL (1.8-7.7); NEUTROPHILS % (AUTO) 80.7 % (42.2-75.2); PLATELET COUNT (AUTO) 237 K/uL (140-450); RED BLOOD CELL COUNT(AUTO) 3.08 MIL/uL (4.20-6.10); RED CELL DISTRIBUTION WIDTH 17.6 % (11.6-13.7); WHITE BLOOD COUNT (AUTO) 10.4 K/uL (4.8-10.8)
[2023-09-05 09:45] LABS: ALANINE AMINOTRANSFERASE 59 U/L (12-78); ALBUMIN 1.9 g/dL (3.4-5.0); ALKALINE PHOSPHATASE 82 U/L (50-136); ANION GAP 9.2 (8-16); ASPARTATE AMINOTRANSFERASE 41 U/L (15-37); CALCIUM 8.1 mg/dL (8.5-10.1); CARBON DIOXIDE 30.5 mmol/L (21-32); CHLORIDE 104 mmol/L (98-107); CREATININE 0.8 mg/dL (0.6-1.3); GLUCOSE 104 mg/dL (74-106); SODIUM SERUM 141 mmol/L (136-145); TOTAL BILIRUBIN 0.7 mg/dL (0.0-1.0); UREA NITROGEN, BLOOD 8 mg/dL (7-18)
[2023-09-05 09:48] LABS: POTASSIUM 2.7 mmol/L (3.5-5.1)
[2023-09-05] MEDS ORDERED: POTASSIUM CHLORIDE 10 MEQ TABER PO SCH (10:24)
[2023-09-05] MEDS ORDERED: KCL 20 MEQ IN 100 mL PREMIX 200 ML IV SCH (10:30)
[2023-09-05] MEDS ORDERED: KCL 20 MEQ IN 100 mL PREMIX 100 ML IV ONE (10:45)
[2023-09-06 06:07] LABS: HEPATITIS A ANTIBODY IGM Negative (Negative); HEPATITIS B CORE AB TOTAL Negative (Negative); HEPATITIS B CORE, IGM Negative (Negative); HEPATITIS B SURFACE ANTIBODY Non Reactive (.); HEPATITIS B SURFACE ANTIGEN Negative (Negative); HEPATITIS C VIRUS ANTIBODY Non Reactive (Non Reactive)
[2023-09-06 17:04] LABS: HEPATITIS A ANTIBODY TOTAL Positive (Negative)
== END 2023-09-05 18:50 | DRG 133 ==
LOC: MED 18:12 → MTU 09-01 05:46 → MIC 09-01 21:21 → MTU 09-04 05:25
PROVIDERS: ADMIT Hospitalist; ATTEND Hospitalist
PROC: 02H633Z Insertion of Infusion Device into Right Atrium, Percutaneous Approach (ICD-10-PCS; principal; 2023-09-02)
PROC: B548ZZA Ultrasonography of Superior Vena Cava, Guidance (ICD-10-PCS; 2023-09-02)
DX: J96.01 Acute respiratory failure with hypoxia (principal); J69.0 Pneumonitis due to inhalation of food and vomit; G93.49 Other encephalopathy; K56.609 Unspecified intestinal obstruction, unspecified as to partial versus complete obstruction; K92.0 Hematemesis; K52.89 Other specified noninfective gastroenteritis and colitis; F01.50 Vascular dementia, unspecified severity, without behavioral disturbance, psychotic disturbance, mood disturbance, and anxiety; E11.9 Type 2 diabetes mellitus without complications; K76.9 Liver disease, unspecified; R13.10 Dysphagia, unspecified; Z20.822 Contact with and (suspected) exposure to COVID-19; E78.5 Hyperlipidemia, unspecified; G30.9 Alzheimer's disease, unspecified; F02.80 Dementia in other diseases classified elsewhere, unspecified severity, without behavioral disturbance, psychotic disturbance, mood disturbance, and anxiety; K59.09 Other constipation; I48.91 Unspecified atrial fibrillation; Z79.899 Other long term (current) drug therapy; I69.354 Hemiplegia and hemiparesis following cerebral infarction affecting left non-dominant side; Z90.49 Acquired absence of other specified parts of digestive tract; N39.0 Urinary tract infection, site not specified
CPT/HCPCS: 36415; 36600; 71045; 71275; 74018; 80048; 80053; 82140; 82272; 82803; 83605; 83735; 84484; 85025; 86704; 86706; 86708; 86709; 86803; 86886; 86900; 86901; 86920; 87040; 87081; 87086; 87205; 87340; 92526; 93005; 94640; 96365; 96367; 96375; 97163-GP; 97530; 99285; C9113; J0282; J0692; J1200; J2060; J2405; J2543; J3480; J3490; J7060; J7612; J7644; Q0092; Q9967

== ENCOUNTER 2024-06-11 20:23 | Inpatient (IN) | payer OTHER ==
[~2024-06-11] VITALS: Ht 170.2 cm; Wt 81.3 kg
[2024-06-11] MEDS: NACL 0.9% 1,000 ML IV ONE (02:45)
[~2024-06-11 20:23] MED LIST changes: -BISA-218 RC; +BISA-279 RC; -ERTA1VIA2 IV; -MEMA5TAB PO; +MEMA5TAB15 PO; +MIRABULK PO
[2024-06-11 20:24] VITALS: BP 126/84; PULSE 78; RESP 18; TEMP 98.6; O2SAT 97
[2024-06-11 21:36] LABS: BASOPHILS % (AUTO) 0.6 % (0.0-2.0); EOSINOPHILS # (AUTO) 0.2 K/uL (0-0.4); EOSINOPHILS % (AUTO) 3.1 % (0.0-4.0); HEMATOCRIT 36.7 % (36-52); HEMOGLOBIN 12.2 g/dL (12.0-18.0); LYMPHOCYTES # (AUTO) 1.4 K/uL (2.0-11.5); LYMPHOCYTES % (AUTO) 20.1 % (20.5-51.1); MEAN CORPUSCULAR HEMOGLOBIN 28 pg (27-31); MEAN CORPUSCULAR HGB CONC 33 g/dL (33-37); MEAN CORPUSCULAR VOLUME 84.8 fL (80-94); MONOCYTES # (AUTO) 0.6 K/uL (0.8-1.0); MONOCYTES % (AUTO) 8.9 % (1.7-9.3); NEUTROPHILS # (AUTO) 4.6 K/uL (1.8-7.7); NEUTROPHILS % (AUTO) 67.3 % (42.2-75.2); PLATELET COUNT (AUTO) 227 K/uL (140-450); RED BLOOD CELL COUNT(AUTO) 4.32 MIL/uL (4.20-6.10); RED CELL DISTRIBUTION WIDTH 15.9 % (11.6-13.7); WHITE BLOOD COUNT (AUTO) 6.8 K/uL (4.8-10.8)
[2024-06-11 22:01] LABS: ALANINE AMINOTRANSFERASE 27 U/L (12-78); ALBUMIN 3.1 g/dL (3.4-5.0); ALKALINE PHOSPHATASE 101 U/L (50-136); ANION GAP 10.7 (8-16); ASPARTATE AMINOTRANSFERASE 15 U/L (15-37); CALCIUM 8.4 mg/dL (8.5-10.1); CARBON DIOXIDE 27.4 mmol/L (21-32); CHLORIDE 98 mmol/L (98-107); CREATINE KINASE, TOTAL 55 U/L (39-308); CREATININE 0.8 mg/dL (0.6-1.3); GLUCOSE 110 mg/dL (74-106); POTASSIUM 4.1 mmol/L (3.5-5.1); SODIUM SERUM 132 mmol/L (136-145); TOTAL BILIRUBIN 0.7 mg/dL (0.0-1.0); UREA NITROGEN, BLOOD 15 mg/dL (7-18)
[2024-06-12] MEDS: HALOPERIDOL IM 5 MG/ML VIAL IM ONE (00:42)
[2024-06-12] MEDS ORDERED: LORazepam 2 MG/ML VIAL ONE (01:52)
[2024-06-12] MEDS ORDERED: LORazepam 2 MG/ML VIAL IM ONE (02:00)
[2024-06-12] MEDS: LORazepam 2 MG/ML VIAL IM ONE (02:00)
[2024-06-12] MEDS ORDERED: ONDANSETRON 4 MG/2 ML VIAL IVP PRN (05:55)
[2024-06-12] MEDS ORDERED: MAGNESIUM OXIDE 400 MG TAB PO PRN (05:55)
[2024-06-12] MEDS ORDERED: POTASSIUM CHLORIDE 10 MEQ TABER PO PRN (05:55)
[2024-06-12] MEDS ORDERED: MORPHINE SULFATE 4 MG/ML SYR IVP PRN (05:55)
[2024-06-12] MEDS ORDERED: ACETAMINOPHEN 325 MG TAB PO PRN (05:55)
[2024-06-12] MEDS ORDERED: KCL 20 MEQ IN 100 mL PREMIX 200 ML IV PRN (05:55)
[2024-06-12] MEDS ORDERED: MEMA5TAB15 PO (06:02)
[2024-06-12 06:29] LABS: FLU A ANTIGEN negative (NEGATIVE); FLU B ANTIGEN NEGATIVE (NEGATIVE)
[2024-06-12] MEDS ORDERED: cefTRIAXone 1,000 MG VIAL ONE (06:36)
[2024-06-12] MEDS: NACL 0.9% 1,000 ML IV SCH (06:51)
[2024-06-12 10:16] VITALS: BP 118/64; PULSE 84; RESP 18; TEMP 97.6; O2SAT 99
[2024-06-12 10:19] VITALS: PULSE 84; O2SAT 99
[2024-06-12 10:38] LABS: APPEARANCE,URINE CLEAR (CLEAR); BILIRUBIN,URINE NEGATIVE (NEGATIVE); BLOOD, URINE 3+ (NEGATIVE); COLOR,URINE YELLOW (YELLOW); LEUKOCYTE ESTERASE ,URINE TRACE (NEGATIVE); NITRITE, URINE NEGATIVE (NEGATIVE); PROTEIN,URINE TRACE (NEGATIVE); UGLUCOSE NEGATIVE (NEGATIVE)
[2024-06-12 10:53] LABS: RBC,URINE >20 (MANY) /HPF (0-5)
[2024-06-12 10:54] LABS: BACTERIA,URINE FEW /HPF (None Seen); SQUAMOUS EPITHELIAL CELL,UR 0-3 (FEW) /LPF (0-3 (FEW))
[2024-06-12 16:00] VITALS: BP 137/74; PULSE 97; RESP 18; TEMP 97.7; O2SAT 100
[2024-06-12 20:00] VITALS: BP 140/86; PULSE 114; RESP 18; TEMP 97.7; TEMP 98; O2SAT 97
[2024-06-12 21:14] VITALS: PULSE 114; RESP 18; O2SAT 97
[2024-06-13 04:00] VITALS: BP 125/56; PULSE 97; RESP 19; TEMP 97.3; O2SAT 97
[2024-06-13 05:22] LABS: BASOPHILS % (AUTO) 0.5 % (0.0-2.0); EOSINOPHILS # (AUTO) 0.2 K/uL (0-0.4); EOSINOPHILS % (AUTO) 2.8 % (0.0-4.0); HEMATOCRIT 35.7 % (36-52); HEMOGLOBIN 12.1 g/dL (12.0-18.0); LYMPHOCYTES # (AUTO) 1.3 K/uL (2.0-11.5); MEAN CORPUSCULAR HEMOGLOBIN 29 pg (27-31); MEAN CORPUSCULAR HGB CONC 34 g/dL (33-37); MEAN CORPUSCULAR VOLUME 84.9 fL (80-94); MONOCYTES # (AUTO) 0.4 K/uL (0.8-1.0); MONOCYTES % (AUTO) 7.3 % (1.7-9.3); NEUTROPHILS % (AUTO) 67.4 % (42.2-75.2); PLATELET COUNT (AUTO) 216 K/uL (140-450); RED BLOOD CELL COUNT(AUTO) 4.21 MIL/uL (4.20-6.10); RED CELL DISTRIBUTION WIDTH 15.8 % (11.6-13.7); WHITE BLOOD COUNT (AUTO) 5.9 K/uL (4.8-10.8)
[2024-06-13 05:46] LABS: ANION GAP 6.3 (8-16); CALCIUM 8.6 mg/dL (8.5-10.1); CARBON DIOXIDE 31.9 mmol/L (21-32); CHLORIDE 101 mmol/L (98-107); CREATININE 0.8 mg/dL (0.6-1.3); GLUCOSE 92 mg/dL (74-106); POTASSIUM 4.2 mmol/L (3.5-5.1); SODIUM SERUM 135 mmol/L (136-145); UREA NITROGEN, BLOOD 14 mg/dL (7-18)
[2024-06-13 08:00] VITALS: PULSE 97; RESP 18; O2SAT 98
[2024-06-13] MEDS: MEDS-TO-BEDS MC SCH (08:54)
[2024-06-13 12:13] VITALS: BP 111/66; PULSE 97; RESP 18; TEMP 98; O2SAT 98
[2024-06-13 20:00] VITALS: BP 122/76; PULSE 94; RESP 20; TEMP 97.3; O2SAT 97
[2024-06-14] MEDS: HYDROcodone/APAP 5/325 MG 1 TAB TAB PO PRN (02:25)
[2024-06-14 04:00] VITALS: BP 115/80; PULSE 83; RESP 19; TEMP 97.7; O2SAT 97
[2024-06-14 08:00] VITALS: BP 117/66; PULSE 85; RESP 18; TEMP 98.1; O2SAT 96
[2024-06-14 15:15] LABS: BASOPHILS % (AUTO) 0.7 % (0.0-2.0); EOSINOPHILS # (AUTO) 0.2 K/uL (0-0.4); EOSINOPHILS % (AUTO) 3.7 % (0.0-4.0); HEMATOCRIT 35.4 % (36-52); HEMOGLOBIN 11.8 g/dL (12.0-18.0); LYMPHOCYTES # (AUTO) 1.1 K/uL (2.0-11.5); MEAN CORPUSCULAR HEMOGLOBIN 28 pg (27-31); MEAN CORPUSCULAR HGB CONC 33 g/dL (33-37); MEAN CORPUSCULAR VOLUME 84.9 fL (80-94); MONOCYTES # (AUTO) 0.5 K/uL (0.8-1.0); MONOCYTES % (AUTO) 8.3 % (1.7-9.3); NEUTROPHILS % (AUTO) 68.3 % (42.2-75.2); PLATELET COUNT (AUTO) 209 K/uL (140-450); RED BLOOD CELL COUNT(AUTO) 4.17 MIL/uL (4.20-6.10); RED CELL DISTRIBUTION WIDTH 15.6 % (11.6-13.7); WHITE BLOOD COUNT (AUTO) 5.8 K/uL (4.8-10.8)
[2024-06-14 15:33] LABS: ANION GAP 10.6 (8-16); CALCIUM 8.7 mg/dL (8.5-10.1); CARBON DIOXIDE 28.1 mmol/L (21-32); CHLORIDE 99 mmol/L (98-107); CREATININE 0.7 mg/dL (0.6-1.3); GLUCOSE 110 mg/dL (74-106); POTASSIUM 3.7 mmol/L (3.5-5.1); SODIUM SERUM 134 mmol/L (136-145); UREA NITROGEN, BLOOD 11 mg/dL (7-18)
[2024-06-14 21:00] VITALS: BP 147/51; PULSE 68; RESP 21; TEMP 98.4; O2SAT 95
[2024-06-15 04:00] VITALS: BP 129/62; PULSE 80; RESP 18; TEMP 97.8; O2SAT 98
[2024-06-15 07:32] LABS: ANION GAP 9.3 (8-16); CALCIUM 8.5 mg/dL (8.5-10.1); CARBON DIOXIDE 28.4 mmol/L (21-32); CHLORIDE 99 mmol/L (98-107); CREATININE 0.8 mg/dL (0.6-1.3); GLUCOSE 100 mg/dL (74-106); POTASSIUM 3.7 mmol/L (3.5-5.1); SODIUM SERUM 133 mmol/L (136-145); UREA NITROGEN, BLOOD 12 mg/dL (7-18)
[2024-06-15 08:00] VITALS: PULSE 70; RESP 21; O2SAT 97
== END 2024-06-15 14:00 | DRG 690 ==
LOC: MED 20:23 → OBSVTOIN 06-12 05:59 → MIC 06-12 05:59 → MTU 06-12 06:28
PROVIDERS: ADMIT Hospitalist; ATTEND Hospitalist
DX: N30.00 Acute cystitis without hematuria (principal); E44.0 Moderate protein-calorie malnutrition; E87.1 Hypo-osmolality and hyponatremia; Z20.822 Contact with and (suspected) exposure to COVID-19; I10 Essential (primary) hypertension; G30.9 Alzheimer's disease, unspecified; F02.80 Dementia in other diseases classified elsewhere, unspecified severity, without behavioral disturbance, psychotic disturbance, mood disturbance, and anxiety; E11.9 Type 2 diabetes mellitus without complications; Z79.899 Other long term (current) drug therapy; Z79.51 Long term (current) use of inhaled steroids
CPT/HCPCS: 36415; 71045; 80048; 80053; 81001; 82550; 82948; 84484; 85025; 87040; 87081; 87086; 93005; 96360; 96372; 97163-GP; 97530; 99285; J0696; J1630; J1644; J2060; J7060; Q0092